=== PATIENT | male | born 2000 | race Caucasian/White ===

== ENCOUNTER 2023-09-08 21:43 | Emergency (ER) | payer SELFPAY ==
[2023-09-08 22:29] LABS: Bacteria/HPF None Seen HPF (None Seen); Bilirubin Negative (Negative); Blood, Urine Negative (Negative); CAUTI Indications for Culture Pelvic or flank pain; Clarity Clear (Clear); Glucose, Urine (Dipstick) Normal (Negative); Ketone, Urine Trace mg/dL (Negative); Leukocyte Negative Leu/uL (Negative); Nitrite Negative (Negative); Protein, Urine (Dipstick) 20 mg/dL (Neg-Trace); RBC/HPF 0-3 HPF (0-3); Specific Gravity, Urine 1.038 (1.002-1.036); Squamous Epithelial 0-3 HPF (0-3); WBC/HPF 0-3 HPF (0-3)
[2023-09-08 22:30] LABS: Urine Culture Reflex No No
[2023-09-08 22:57] LABS: #Basophils 0.07 10x3/uL (0.0-0.2); %Basophils 0.7 % (0.0-1.0); %Eosinophils 0.7 % (0.0-10.0); %Lymphocytes 43.3 % (21.0-51.0); %Monocytes 6.9 % (0.0-10.0); Hematocrit 45.5 % (42.0-52.0); Mean Corpuscular HGB CONC 37.4 g/dL (32.0-36.0); Mean Corpuscular Hemoglobin 32.9 pg (27.0-31.0); Mean Platelet Volume 10.5 fL (7.4-10.4); Platelet Count 272 10x3/uL (130-400); Red Blood Cell (RBC) Count 5.17 mill/uL (4.70-6.10)
[2023-09-08 23:14] LABS: ALT (SGPT) 16 U/L (8-55); AST (SGOT) 15 U/L (5-34); Albumin 4.8 g/dL (3.5-5.0); Alkaline Phosphatase 98 U/L (40-110); Anion Gap 17 mmol/L (10-20); BUN (Urea Nitrogen) 17 mg/dL (8.9-20.6); Bilirubin, Total 0.8 mg/dL (0.2-1.2); Calc. Creatinine Clearance 0 mL/min (70-130); Calcium 9.9 mg/dL (7.8-10.44); Carbon Dioxide 18 mmol/L (22-29); Chloride 109 mmol/L (98-107); Estimated GFR 115; Glucose 96 mg/dL (70-105); Potassium 3.6 mmol/L (3.5-5.1); Protein, Total 7.8 g/dL (6.0-8.3); Sodium 140 mmol/L (136-145)
[2023-09-08 23:19] LABS: Troponin I Less than 0.010 ng/mL (< 0.028)
[2023-09-09] MEDS ORDERED: Albuterol 2.5 MG (3 mL) NEB ONE (01:22)
[2023-09-09] MEDS ORDERED: Dexamethasone 10 MG/ML VIAL ONE (02:01)
[2023-09-09] MEDS ORDERED: Ketorolac Tromethamine 30 MG (1 mL) VIAL ONE (02:02)
== END 2023-09-09 02:15 | disposition home or self-care (01) ==
LOC: ERS 21:43
DX: B34.9 Viral infection, unspecified (principal)
CPT/HCPCS: 36415; 71046; 80053; 81001; 84484; 85025; 93005; 96361; 96374; 96375; J1100; J1885; J7611